=== PATIENT | male | born 1960 | race Two or more races ===

== ENCOUNTER 2018-05-06 08:06 | Day surgery (SDC) | payer OTHER ==
[2018-05-05 14:28] VITALS: BMI 24.3
[2018-05-06 08:44] VITALS: TEMP 97.9
[2018-05-06 11:08] VITALS: BP 118/77; PULSE 72
--- NOTE | 2018-05-07 11:27 | PATH ---
Surgical Pathology Report Patient Name: DARNELL GRACE [facility]. Rec. #: [id number] /Age/Gender: 1960 (Age: 57) / M Account: [id number] Location: [facility]-ENDOSCOPY Taken: 05/06/2018 Received: 05/06/2018 Reported: 05/07/2018 Physicians: Glendy Esteves M.D. Specimen(s) Received BX RECTAL POLYP Clinical History Colon screening Postoperative diagnosis: Rectal polyp Final Diagnosis RECTAL POLYP, POLYPECTOMY: HYPERPLASTIC POLYP. Electronically Signed Suhail Zayas M.D. Gross Description Received in formalin, labeled "rectal polyp" is a clay, irregular portion of soft tissue measuring 0.3 cm. in greatest dimension. The specimen is submitted in toto in one cassette. 05/06/201805/06/2018
== END 2018-05-06 10:45 | disposition home or self-care (01) ==
LOC: JASU-ENDO 08:06
PROVIDERS: ATTEND Internal Medicine Gastroenterology
PROC: 0DBP8ZX Excision of Rectum, Via Natural or Artificial Opening Endoscopic, Diagnostic (ICD-10-PCS; principal; 2018-05-06 09:00)
DX: Z12.11 Encounter for screening for malignant neoplasm of colon (principal); K62.1 Rectal polyp; K64.8 Other hemorrhoids
CPT/HCPCS: 88305-TC

== ENCOUNTER 2021-01-26 04:49 | Day surgery (SDC) | payer OTHER ==
[2021-01-24 17:08] VITALS: BMI 27.3
[2021-01-26] MEDS ORDERED: DEXMEDETOMIDINE HCL 200 MCG/2 ML IVPB ONE (06:54)
[2021-01-26] MEDS ORDERED: ACETAMINOPHEN INJECTION 100 ML IVPB ONE (07:02)
[2021-01-26] MEDS ORDERED: SUCCINYLCHOLINE CHLORIDE 200 MG/10 ML SYRINGE ONE ×2 (07:14→09:03)
[2021-01-26] MEDS ORDERED: ceFAZolin SODIUM 1 GM VIAL ONE (07:14)
[2021-01-26] MEDS ORDERED: LIDOCAINE HCL 2% JELLY (5 ML/TUBE) ONE (07:14)
[2021-01-26] MEDS ORDERED: LIDOCAINE HCL/PF 2% SDV 5ML VIAL ONE (07:14)
[2021-01-26] MEDS ORDERED: fentaNYL CITRATE 250 MCG/5 ML VIAL ONE (07:15)
[2021-01-26] MEDS ORDERED: KETAMINE HCL 200 MG/20 ML VIAL ONE (07:15)
[2021-01-26] MEDS ORDERED: MIDAZOLAM HCL 2 MG/2 ML SINGLE DOSE VIAL ONE (07:15)
[2021-01-26] MEDS ORDERED: PROPOFOL 20 ML ONE ×3 (07:17)
[2021-01-26] MEDS ORDERED: BUPIVACAINE HCL/PF 0.5% (5MG/ML) 10 ML VIAL ONE (07:49)
[2021-01-26] MEDS ORDERED: ETOMIDATE 20 MG/10 ML AMPUL IVPUSH ONE (08:20)
[2021-01-26] MEDS ORDERED: ceFAZolin 2 GRAM PREMIX BAG IVPB ONE (08:20)
[2021-01-26] MEDS ORDERED: BUPIVACAINE HCL/PF 0.5% (5MG/ML) 10 ML VIAL IJ ONE ×2 (08:43)
[2021-01-26] MEDS ORDERED: ROCURONIUM BROMIDE 50 MG/5 ML SYRINGE ONE (08:48)
[2021-01-26] MEDS ORDERED: NEOSTIGMINE METHYLSULFATE 0.5 MG/ML - 10 ML MDV ONE (09:03)
[2021-01-26] MEDS ORDERED: GLYCOPYRROLATE 0.2 MG/1 ML VIAL ONE (09:05)
[2021-01-26 18:06] VITALS: BP 165/95; PULSE 75; TEMP 97.2
== END 2021-01-26 18:06 | disposition home or self-care (01) ==
LOC: JASU-SURG 04:49
PROVIDERS: ATTEND Surgery
PROC: 0FT44ZZ Resection of Gallbladder, Percutaneous Endoscopic Approach (ICD-10-PCS; principal; 2021-01-26 08:00)
DX: K80.10 Calculus of gallbladder with chronic cholecystitis without obstruction (principal); E11.9 Type 2 diabetes mellitus without complications; I10 Essential (primary) hypertension; Z79.4 Long term (current) use of insulin
CPT/HCPCS: 82962; 88304-TC; 88305-TC; 94760; J0131

== ENCOUNTER 2021-01-26 23:30 | Emergency (ER) | payer OTHER ==
[2021-01-26 23:46] VITALS: PULSE 103; TEMP 98; BMI 28.1
[2021-01-27] MEDS ORDERED: FAMOTIDINE 10 MG TABLET PO ONE (01:38)
[2021-01-27] MEDS ORDERED: FAMOTIDINE 20 MG TABLET ONE (01:39)
[2021-01-27 01:47] VITALS: BP 170/88
== END 2021-01-27 01:47 | disposition home or self-care (01) ==
LOC: JER 23:30
DX: R33.9 Retention of urine, unspecified (principal)
CPT/HCPCS: 99283-25

== ENCOUNTER 2021-02-10 19:31 | Inpatient (IN) | payer OTHER ==
[2021-02-10] MEDS ORDERED: AMPICILLIN NA/SULBACTAM NA 1.5 GM in SODIUM CHLORIDE 100 ML IVPB ONE (20:19)
[2021-02-10] MEDS ORDERED: ACETAMINOPHEN 1000 MG/100 ML VIAL (NON FORMULARY) IVPB ONE (20:20)
[2021-02-10] MEDS ORDERED: SODIUM CHLORIDE 0.9% 500 ML INFUS.BAG IV ONE (20:20)
[2021-02-10] MEDS ORDERED: ACETAMINOPHEN INJECTION 100 ML IVPB ONE (20:21)
[2021-02-10] MEDS ORDERED: ONDANSETRON 4 MG/2 ML VIAL IVPUSH ONE (20:23)
[2021-02-10] MEDS ORDERED: ONDANSETRON 4 MG/2 ML VIAL ONE (20:25)
[2021-02-10] MEDS ORDERED: morphine CARPU-JECT 2 MG/1 ML DISP.SYRIN IVPUSH ONE (20:37)
[2021-02-10] MEDS ORDERED: MORPHINE SULFATE 2 MG/ML VIAL ONE (20:42)
[2021-02-10 20:49] LABS: BASO % 0.5 % (0-2.0); EOS % 0.2 % (0-4.5); HEMATOCRIT 39.3 % (35.4-49); HEMOGLOBIN 13.9 GM/dL (11.7-16.9); LYMPH % 4.8 % (8-40); MCH 27.2 pg (25.7-33.7); MCHC 35.3 g/dl (32.0-35.9); MEAN CELL VOLUME 77.2 fl (80-96); MONO % 7.2 % (3.8-10.2); NEUT % 87.3 % (42.8-82.8); PLATELET COUNT 286 10^3/uL (134-434); RBC 5.09 M/mm3 (4.00-5.60); RDW 13.4 % (11.9-15.9)
[2021-02-10 20:56] LABS: INR 1.15 (0.83-1.09); PROTHROMBIN TIME (PATIENT) 14.1 SEC (9.7-13.0)
[2021-02-10 20:58] LABS: ACTIVATED PTT 25.9 SECONDS (25.2-36.5)
[2021-02-10 21:11] LABS: CHLORIDE 93 mmol/L (98-107); SODIUM 127 mmol/L (136-145)
[2021-02-10 21:13] LABS: ALBUMIN 2.7 g/dl (3.4-5.0); CALCIUM 7.9 mg/dL (8.5-10.1)
[2021-02-10 21:14] LABS: ANION GAP 13 MMOL/L (8-16); ANISOCYTOSIS 0; CO2 20 mmol/L (21-32); HELMET CELLS 0; HOWELL-JOLLY BODIES 0; LIPASE 176 U/L (73-393); MACROCYTOSIS 0; MAGNESIUM 1.4 mg/dL (1.8-2.4); OVALOCYTE 0; PLATELET ESTIMATE NORMAL; ROULEAU 0; SICKELED CELLS 0; TARGET CELLS 0; TEAR DROP CELLS 0; TOXIC GRANULATION 0
[2021-02-10 21:16] LABS: SGPT/ALT 35 U/L (13-61)
[2021-02-10] MEDS ORDERED: MAGNESIUM SULF 50% (8.12 MEQ/2 ML-1 GM VIAL) IVPB ONE (21:16)
[2021-02-10 21:17] LABS: CREATININE 1.6 mg/dL (0.55-1.3); PHOSPHOROUS 2.3 mg/dL (2.5-4.9); SGOT/AST 19 U/L (15-37)
[2021-02-10 21:18] LABS: BILIRUBIN,TOTAL 1.3 mg/dL (0.2-1); TOT PROT 7.3 g/dl (6.4-8.2)
[2021-02-10 21:19] LABS: ALK PHOS 108 U/L (45-117)
[2021-02-10 21:20] LABS: GLUCOSE,RANDOM 405 mg/dL (74-106)
[2021-02-10 21:27] LABS: EPI CELLS 1 /uL (0-25.1); HYALINE CASTS 0 /uL (0-3.1); PH,URINE 6.5 (5.0-8.0); URINE APPEARANCE CLOUDY; URINE BACTERIA 226 /uL (0-1359); URINE BILIRUBIN NEGATIVE (NEGATIVE); URINE COLOR YELLOW; URINE GLUCOSE (UA) 3+ (NEGATIVE); URINE KETONE NEGATIVE (NEGATIVE); URINE LEUK ESTERASE 2+ (NEGATIVE); URINE NITRITE NEGATIVE (NEGATIVE); URINE PROTEIN 2+ (NEGATIVE); URINE RBC 20 /uL (0-23.9); URINE WBC 1417 /uL (0-25.8)
[2021-02-10] MEDS ORDERED: PIPERACILLIN/TAZOB 3.375 GM 3.375 GM in DEXTROSE 5%-WATER - 50 ML IVPB ONE (21:42)
[2021-02-10] MEDS ORDERED: PIPERACILLIN/TAZOB 3.375 GM 3.375 GM/50 ML BAG IVPB ONE (21:44)
[2021-02-10] MEDS ORDERED: MAGNESIUM 1GM/D5W - 1 GM/100 ML IVPB IVPB ONE (21:44)
[2021-02-10] MEDS ORDERED: POTASSIUM CHLORIDE 10 MEQ in SODIUM CHLORIDE 1,000 ML IVPB SCH (21:45)
[2021-02-11] MEDS: POTASSIUM CHLORIDE 10 MEQ in SODIUM CHLORIDE 1,000 ML IVPB SCH ×2 (00:18→23:00)
[2021-02-11] MEDS ORDERED: ONDANSETRON 4 MG/2 ML VIAL IVPUSH PRN (02:30)
[2021-02-11] MEDS ORDERED: PIPERACILLIN/TAZOB 3.375 GM 3.375 GM/50 ML BAG IVPB ONE (04:33)
[2021-02-11] MEDS: PIPERACILLIN/TAZOB 3.375 GM 3.375 GM in DEXTROSE 5%-WATER - 50 ML IVPB SCH ×3 (04:35→18:37)
[2021-02-11] MEDS: HEPARIN NA (PORCINE) 5,000 UNITS/ML 1ML VIAL SQ SCH ×2 (06:26→15:32)
[2021-02-11] MEDS: INSULIN SLIDING SCALE (NOVOLOG) 1 VIAL SQ SCH ×4 (06:26→22:49)
[2021-02-11 06:40] VITALS: BMI 22.8
[2021-02-11] MEDS ORDERED: PIPERACILLIN/TAZOBACTAM 3.375 GM VIAL IVPB ONE ×2 (09:25→17:57)
[2021-02-11] MEDS ORDERED: DEXTROSE 5%-WATER - 50 ML IVPB ONE ×2 (09:25→17:57)
[2021-02-11] MEDS ORDERED: GABAPENTIN 300 MG CAPSULE PO SCH (10:00)
[2021-02-11] MEDS: PANTOPRAZOLE 40 MG TABLET PO SCH (10:06)
[2021-02-11] MEDS: RAMIPRIL 5 MG CAPSULE PO SCH (10:06)
[2021-02-11] MEDS ORDERED: SODIUM CHLORIDE 1,000 ML IV SCH (11:30)
[2021-02-11] MEDS ORDERED: MORPHINE SULFATE 2 MG/ML VIAL IVPUSH PRN (11:31)
[2021-02-11] MEDS: ACETAMINOPHEN 1000 MG/100 ML VIAL (NON FORMULARY) IVPB PRN ×2 (12:58→18:36)
[2021-02-11 14:37] LABS: BASO % 0.5 % (0-2.0); EOS % 0.6 % (0-4.5); HEMATOCRIT 38.9 % (35.4-49); HEMOGLOBIN 13.3 GM/dL (11.7-16.9); LYMPH % 5.3 % (8-40); MCH 27.6 pg (25.7-33.7); MCHC 34.2 g/dl (32.0-35.9); MEAN CELL VOLUME 80.7 fl (80-96); MEAN PLT VOLUME 8.1 fl (7.5-11.1); MONO % 6.2 % (3.8-10.2); NEUT % 87.4 % (42.8-82.8); PLATELET COUNT 270 10^3/uL (134-434); RBC 4.82 M/mm3 (4.00-5.60); RDW 13.4 % (11.9-15.9); WHITE BLOOD COUNT 16.8 K/mm3 (4.0-10.0)
[2021-02-11 19:59] LABS: CALCIUM 7.6 mg/dL (8.5-10.1); MAGNESIUM 1.7 mg/dL (1.8-2.4)
[2021-02-11 20:03] LABS: CREATININE 1.6 mg/dL (0.55-1.3)
[2021-02-11] MEDS: ATORVASTATIN CA 40 MG TABLET (FP) PO SCH (22:48)
[2021-02-11] MEDS: GABAPENTIN 300 MG CAPSULE PO SCH (22:48)
[2021-02-11] MEDS: POLYETHYLENE GLYCOL (HEALTHYLAX) 3350 17 GM PACKET PO SCH (22:49)
[2021-02-11] MEDS: INSULIN (LEVEMIR) 100 UNITS/ML UNITS SQ SCH (22:49)
[2021-02-12] MEDS ORDERED: MORPHINE SULFATE 2 MG/ML VIAL IVPUSH PRN (00:21)
[2021-02-12] MEDS: MORPHINE SULFATE 2 MG/ML VIAL IVPUSH PRN (00:27)
[2021-02-12] MEDS ORDERED: PIPERACILLIN/TAZOBACTAM 3.375 GM VIAL IVPB ONE ×3 (01:34→16:57)
[2021-02-12] MEDS ORDERED: DEXTROSE 5%-WATER - 50 ML IVPB ONE ×3 (01:34→16:57)
[2021-02-12] MEDS: hydrALAZINE HCL 20 MG/ML VIAL IVPUSH PRN ×2 (01:53→17:29)
[2021-02-12] MEDS ORDERED: PIPERACILLIN/TAZOB 3.375 GM 3.375 GM in DEXTROSE 5%-WATER - 50 ML IVPB SCH (02:00)
[2021-02-12] MEDS: PIPERACILLIN/TAZOB 3.375 GM 3.375 GM in DEXTROSE 5%-WATER - 50 ML IVPB SCH ×3 (02:08→18:36)
[2021-02-12] MEDS: ACETAMINOPHEN 1000 MG/100 ML VIAL (NON FORMULARY) IVPB PRN ×2 (05:09→21:49)
[2021-02-12] MEDS: INSULIN SLIDING SCALE (NOVOLOG) 1 VIAL SQ SCH ×4 (06:09→21:50)
[2021-02-12] MEDS ORDERED: PT OWN MED DRAWER 7, Y5N ONE ×3 (06:10→17:25)
[2021-02-12] MEDS ORDERED: MINERAL OIL ENEMA 133 ML ENEMA RC ONE (08:53)
[2021-02-12] MEDS ORDERED: MAGNESIUM 1GM/D5W 100ML - 100 ML IVPB IVPB ONE (09:00)
[2021-02-12] MEDS: TAMSULOSIN HCL 0.4 MG CAP PO SCH (09:02)
[2021-02-12] MEDS: GABAPENTIN 300 MG CAPSULE PO SCH ×2 (09:52→21:50)
[2021-02-12] MEDS: RAMIPRIL 5 MG CAPSULE PO SCH (09:52)
[2021-02-12] MEDS: DOCUSATE SODIUM 100 MG CAPSULE (FP) PO SCH (09:53)
[2021-02-12] MEDS: PANTOPRAZOLE 40 MG TABLET PO SCH (09:53)
[2021-02-12] MEDS: ENOXAPARIN NA (PORCINE) 40 MG/0.4 ML DISP.SYRIN SQ SCH (09:58)
[2021-02-12 10:28] LABS: BASO % 0.7 % (0-2.0); EOS % 1.3 % (0-4.5); HEMATOCRIT 37.1 % (35.4-49); HEMOGLOBIN 13.1 GM/dL (11.7-16.9); MCH 27.6 pg (25.7-33.7); MCHC 35.3 g/dl (32.0-35.9); MEAN CELL VOLUME 78.1 fl (80-96); MONO % 6.7 % (3.8-10.2); NEUT % 83.3 % (42.8-82.8); PLATELET COUNT 307 10^3/uL (134-434); RBC 4.76 M/mm3 (4.00-5.60); RDW 13.5 % (11.9-15.9); WHITE BLOOD COUNT 16.8 K/mm3 (4.0-10.0)
[2021-02-12 10:57] LABS: ALBUMIN 2.3 g/dl (3.4-5.0); CALCIUM 7.8 mg/dL (8.5-10.1); MAGNESIUM 1.7 mg/dL (1.8-2.4)
[2021-02-12 11:00] LABS: CREATININE 1.4 mg/dL (0.55-1.3); PHOSPHOROUS 2.8 mg/dL (2.5-4.9)
[2021-02-12 11:02] LABS: BILIRUBIN,TOTAL 0.8 mg/dL (0.2-1); TOT PROT 6.6 g/dl (6.4-8.2)
[2021-02-12] MEDS: POTASSIUM CHLORIDE 10 MEQ in SODIUM CHLORIDE 1,000 ML IVPB SCH (12:21)
[2021-02-12] MEDS: POLYETHYLENE GLYCOL (HEALTHYLAX) 3350 17 GM PACKET PO SCH (21:50)
[2021-02-12] MEDS: ATORVASTATIN CA 40 MG TABLET (FP) PO SCH (21:50)
[2021-02-12] MEDS: INSULIN (LEVEMIR) 100 UNITS/ML UNITS SQ SCH (21:50)
[2021-02-13] MEDS ORDERED: PIPERACILLIN/TAZOBACTAM 3.375 GM VIAL IVPB ONE ×3 (01:50→17:15)
[2021-02-13] MEDS ORDERED: DEXTROSE 5%-WATER - 50 ML IVPB ONE ×3 (01:50→17:15)
[2021-02-13] MEDS: PIPERACILLIN/TAZOB 3.375 GM 3.375 GM in DEXTROSE 5%-WATER - 50 ML IVPB SCH ×3 (02:00→17:54)
[2021-02-13] MEDS: MORPHINE SULFATE 2 MG/ML VIAL IVPUSH PRN (06:18)
[2021-02-13] MEDS: INSULIN SLIDING SCALE (NOVOLOG) 1 VIAL SQ SCH ×3 (06:24→16:29)
[2021-02-13] MEDS ORDERED: SODIUM PHOSPHATE/NA BIPHOS 133 ML ENEMA RC ONE (08:40)
[2021-02-13] MEDS: TAMSULOSIN HCL 0.4 MG CAP PO SCH (09:22)
[2021-02-13] MEDS: GABAPENTIN 300 MG CAPSULE PO SCH (09:22)
[2021-02-13] MEDS: DOCUSATE SODIUM 100 MG CAPSULE (FP) PO SCH (09:23)
[2021-02-13] MEDS: PANTOPRAZOLE 40 MG TABLET PO SCH (09:23)
[2021-02-13] MEDS: RAMIPRIL 5 MG CAPSULE PO SCH (09:23)
[2021-02-13] MEDS: ENOXAPARIN NA (PORCINE) 40 MG/0.4 ML DISP.SYRIN SQ SCH (09:27)
[2021-02-13] MEDS ORDERED: amLODIPine BESYLATE 5 MG TABLET (FP) PO SCH (10:00)
[2021-02-13 10:50] VITALS: TEMP 98.4
[2021-02-13] MEDS ORDERED: amLODIPine BESYLATE 5 MG TABLET (FP) PO ONE (14:45)
[2021-02-13 15:29] VITALS: PULSE 92
[2021-02-13] MEDS ORDERED: METOPROLOL TARTRATE 25 MG TABLET (FP) PO ONE (17:00)
[2021-02-13 17:44] LABS: BASO % 0.6 % (0-2.0); EOS % 1.6 % (0-4.5); HEMATOCRIT 36.4 % (35.4-49); HEMOGLOBIN 12.7 GM/dL (11.7-16.9); LYMPH % 7.5 % (8-40); MCHC 34.8 g/dl (32.0-35.9); MEAN CELL VOLUME 77.8 fl (80-96); MEAN PLT VOLUME 8.1 fl (7.5-11.1); MONO % 5.5 % (3.8-10.2); NEUT % 84.8 % (42.8-82.8); PLATELET COUNT 315 10^3/uL (134-434); RBC 4.68 M/mm3 (4.00-5.60); WHITE BLOOD COUNT 12.6 K/mm3 (4.0-10.0)
[2021-02-13 18:02] LABS: CALCIUM 8.2 mg/dL (8.5-10.1)
[2021-02-13 18:03] LABS: BLOOD UREA NITROGEN 9.7 mg/dL (7-18); MAGNESIUM 1.8 mg/dL (1.8-2.4)
[2021-02-13 18:06] LABS: CREATININE 1.3 mg/dL (0.55-1.3)
[2021-02-13 18:35] VITALS: BP 147/90
== END 2021-02-13 19:17 | disposition home or self-care (01) | DRG 463 ==
LOC: JER 19:31 → JERBED 02-11 00:40 → J5S 02-11 06:03
PROVIDERS: ADMIT Internal Medicine; ATTEND Internal Medicine
DX: N30.01 Acute cystitis with hematuria (principal); E86.0 Dehydration; N17.9 Acute kidney failure, unspecified; I10 Essential (primary) hypertension; E78.5 Hyperlipidemia, unspecified; E83.42 Hypomagnesemia; E11.65 Type 2 diabetes mellitus with hyperglycemia; R10.32 Left lower quadrant pain; E87.1 Hypo-osmolality and hyponatremia; Z79.4 Long term (current) use of insulin; R63.0 Anorexia; R11.2 Nausea with vomiting, unspecified
CPT/HCPCS: 36415; 74176-TC; 80048; 80053; 81003; 82962; 83605; 83690; 83735; 84100; 85025; 85610; 85730; 86850; 86900; 86901; 87040; 87086; 87186; 93005; 93010; 94010; 99285-25; C9803; J0131; J1644; U0003; U0005